=== PATIENT | male | born 1980 | race Caucasian/White ===

== ENCOUNTER 2024-08-07 08:29 | Emergency (ER) | payer MEDICAID, OTHER ==
[~2024-08-07] VITALS: Ht 167.6 cm; Wt 68.0 kg
[2024-08-07 08:32] VITALS: O2SAT 99
[2024-08-07 08:50] VITALS: TEMP 37.11408
[2024-08-07] MEDS: ASPIRIN 81MG TABLET PO ONE (09:17)
[2024-08-07] MEDS: SODIUM CHLORIDE 0.9% 1,000 ML IV ONE (09:18)
[2024-08-07 09:37] LABS: BASOPHILS % 0.6 % (0.0-2.0); EOSINOPHILS % 4.9 % (0.0-5.0); HEMATOCRIT. 43.6 % (42.0-52.0); HEMOGLOBIN. 14.2 g/dL (14.0-18.0); LYMPHOCYTES % 22.5 % (20.0-50.0); MEAN CORPUSCULAR HEMOGLOBIN 28.8 pg (28.0-32.0); MEAN CORPUSCULAR HGB CONC 32.5 g/dL (31.0-37.0); MEAN CORPUSCULAR VOLUME 88.4 fL (80.0-94.0); MEAN PLATELET VOLUME 8.3 fl (7.4-10.4); MONOCYTES % 8.8 % (2.0-8.0); NEUTROPHILS % 63.2 % (40.0-76.0); PLATELET 259 x1000/uL (130-400); RED BLOOD CELL COUNT 4.93 mill/uL (4.7-6.1); RED CELL DISTRIBUTION WIDTH 15.1 % (11.6-14.6); WHITE BLOOD COUNT 9.5 x1000/uL (4.5-11.0)
[2024-08-07 09:47] LABS: CHLORIDE 106 mEq/L (98-107); POTASSIUM 4.4 mEq/L (3.5-5.1); SODIUM 140 mEq/L (136-145)
[2024-08-07 09:48] LABS: CALCIUM 9.4 mg/dL (8.7-10.4); CARBON DIOXIDE 29 mEq/L (21-32)
[2024-08-07 09:52] LABS: D-DIMER < 0.19 mg/L FEU (<0.50); PROTHROMBIN TIME 11.3 sec (9.6-11.0)
[2024-08-07 09:53] LABS: GLUCOSE 101 mg/dL (70-105); UREA NITROGEN BLOOD 14 mg/dL (9-23)
[2024-08-07 09:54] LABS: TROPONIN I HIGH SENSITIVITY 5 ng/L (3.0-53)
[2024-08-07 11:07] VITALS: BP 134/104; PULSE 117; RESP 11; O2SAT 100
== END 2024-08-07 11:08 | disposition home or self-care (01) ==
LOC: ER 08:29
DX: R07.89 Other chest pain (principal)
CPT/HCPCS: 80048; 83880; 85025; 85379; 85610; 84484; 36415; 71045; 93005; 99285; Z7610; J7030